=== PATIENT | male | born 1945 | race Caucasian/White ===

== ENCOUNTER 2018-08-26 07:48 | Inpatient (IN) ==
[2018-08-19 10:47] LABS: Appearance,Urine CLEAR; Bilirubin,Urine NEG (NEG); Color,Urine YELLOW; Glucose,Urine (UA) NEGATIVE (NEG); Leukocyte Esterase,Urine NEG /uL (NEG); Protein,Urine NEG (NEG); Specific Gravity,Urine 1.023 (1.000-1.035); Urine Blood NEG mg/dL (<0.03); Urobilinogen,Urine NEG (NEG)
[2018-08-19 12:13] LABS: Basophils # (Auto) 0 K/mcL (0.0-0.3); Basophils % (Auto) 0.7 % (0.0-2.0); Blood Urea Nitrogen 23 mg/dl (8-23); Eosinophils # (Auto) 0.2 K/mcL (0.0-0.7); Eosinophils % (Auto) 3.4 % (0.0-7.0); Granulocytes % (Auto) 57.8 % (38.0-78.0); Lymphocytes # (Auto) 1.3 K/mcL (1.5-4.8); Lymphocytes % (Auto) 27.2 % (15.5-49.0); Mean Cell Volume 94.9 fL (80.0-100.0); Mean Corpuscular HGB Conc 33.1 g/dL (31.0-36.0); Mean Corpuscular Hemoglobin 31.4 pg (26.0-34.0); Monocytes # (Auto) 0.5 K/mcL (0.1-0.9); Monocytes % (Auto) 10.9 % (1.0-12.0); Platelet Count 134 K/mcL (140-440); RBC 4.99 M/mcL (4.50-5.90)
[~2018-08-26 07:48] MED LIST: ACETAMINOPHEN 500 MG TABLET PO SCH; CELECOXIB 200 MG CAPSULE PO SCH; PREGABALIN 75 MG CAPSULE PO SCH; ceFAZolin 1 GM VIAL IV SCH; oxyCODONE 10 MG TAB.ER.12H PO SCH
[2018-08-26] MEDS ORDERED: TRANEXAMIC ACID 1,000 MG/10 ML VIAL IV ONE ×2 (11:00→12:09)
[2018-08-26] MEDS ORDERED: PROPOFOL 200 MG/20 ML VIAL IV ONE (11:00)
[2018-08-26] MEDS ORDERED: PHENYLEPHRINE 10 MG/ML VIAL IV ONE (11:00)
[2018-08-26] MEDS ORDERED: LIDOCAINE HCL/PF 100 MG/5 ML SYRINGE IV ONE (11:00)
[2018-08-26] MEDS ORDERED: ONDANSETRON 4 MG/2 ML VIAL IV ONE (11:00)
[2018-08-26] MEDS ORDERED: ROPIVACAINE HCL/PF 30 ML VIAL IJ ONE (11:00)
[2018-08-26] MEDS ORDERED: GLYCOPYRROLATE 0.2 MG/ML VIAL IV ONE (11:00)
[2018-08-26] MEDS ORDERED: fentaNYL 100 MCG/2 ML VIAL IV ONE (11:00)
[2018-08-26] MEDS ORDERED: KETAMINE 100 MG/ML ML IV ONE (11:00)
[2018-08-26] MEDS ORDERED: MIDAZOLAM 2 MG/2 ML VIAL IV ONE (11:00)
[2018-08-26] MEDS ORDERED: IPRATROPIUM/ALBUTEROL 3 ML AMPUL.NEB NEB PRN ×2 (12:02→12:03)
[2018-08-26] MEDS ORDERED: NALOXONE HCL 0.4 MG/ML VIAL IV PRN (12:03)
[2018-08-26] MEDS ORDERED: FLUMAZENIL 0.1 MG/ML ML IV PRN (12:03)
[2018-08-26] MEDS ORDERED: diphenhydrAMINE 50 MG/ML VIAL IV PRN (12:03)
[2018-08-26] MEDS ORDERED: HYDROmorphone 2 MG/ML VIAL IV PRN ×2 (12:03→12:09)
[2018-08-26] MEDS ORDERED: ePHEDrine 50 MG/ML AMPUL IV PRN (12:03)
[2018-08-26] MEDS ORDERED: ATROPINE SULFATE 0.4 MG/ML VIAL IV PRN (12:03)
[2018-08-26] MEDS ORDERED: PROMETHAZINE 25 MG/ML VIAL IV PRN (12:03)
[2018-08-26] MEDS ORDERED: MEPERIDINE 25 MG/ML SYRINGE IV PRN (12:03)
[2018-08-26] MEDS ORDERED: METOPROLOL TARTRATE 5 MG/5 ML VIAL IV PRN (12:03)
[2018-08-26] MEDS ORDERED: ONDANSETRON 4 MG/2 ML VIAL IV PRN ×2 (12:03→12:09)
[2018-08-26] MEDS ORDERED: METHOCARBAMOL 1,000 MG/10 ML VIAL IV PRN (12:03)
[2018-08-26] MEDS ORDERED: MAGNESIUM HYDROXIDE 30 ML ORAL.SUSP PO PRN (12:09)
[2018-08-26] MEDS ORDERED: BENZOCAINE/MENTHOL 1 LOZENGE PO PRN (12:09)
[2018-08-26] MEDS ORDERED: POLYETHYLENE GLYCOL 3350 17 GM PACKET PO PRN (12:09)
[2018-08-26] MEDS ORDERED: FLEETS ADULT ENEMA PR PRN (12:09)
[2018-08-26] MEDS ORDERED: TEMAZEPAM 15 MG CAPSULE PO PRN (12:09)
[2018-08-26] MEDS ORDERED: KETOROLAC 15 MG/ML VIAL IV PRN (12:09)
[2018-08-26] MEDS ORDERED: BISACODYL 10 MG SUPP.RECT PR PRN (12:09)
--- NOTE | 2018-08-26 12:09 | Brief Operative Note ---
Date of procedure: 08/26/18 Pre-op diagnosis: left shoulder djd and tear bicep Post-op diagnosis: same Procedure: left reverse tsa and bicep tenodesis Grafts/Implants: Yes Anesthesia: GETA Complications: none Surgeon: Tre Szymanski [employer] Vice President: Ralf Vuong Estimated blood loss (cc): 120 Specimens Removed/Pathology: none sent Condition: stable Disposition: PACU
[2018-08-26] MEDS ORDERED: LORazepam 1 MG TABLET PO PRN (12:12)
[2018-08-26] MEDS ORDERED: LACTATED RINGERS 1,000 ML IV SCH (12:15)
--- NOTE | 2018-08-26 12:41 | Operative Note ---
DATE OF OPERATION: 08/26/2018 PREOPERATIVE DIAGNOSES: Left shoulder rotator cuff arthropathy, degenerative arthritis, and biceps tendinopathy. POSTOPERATIVE DIAGNOSES: Left shoulder rotator cuff arthropathy, degenerative arthritis, and biceps tendinopathy. PROCEDURE: Left reverse total shoulder. SURGEON: Tre Szymanski M.D. RIB STIFFENER AND HEEL DIPPER: Ralf Vuong PA-C. ANESTHESIA: General LMA anesthesia. ESTIMATED BLOOD LOSS: 120 mL. IMPLANTS: A size 9 cementless stem with a standard thickness poly, 36 mm concentric head with 2 mm of offset, and a Metaglene with four screws per nurse's notes. COMPLICATIONS: None. DESCRIPTION OF PROCEDURE: The patient was brought to the operating room and put to sleep with general LMA anesthesia. Once asleep, the patient had the left shoulder sterilely prepped and draped in the usual sterile fashion. Timeout was performed. We confirmed the operative site. Then we made a deltopectoral approach. Once done, we then exposed the subscap. The deltoid was retracted laterally with the cephalic vein with a Colvin retractor. We released the subscap and biceps tendon. The biceps tendon was attached to the pec major muscle with a FiberWire stitch and three [id number] stitches. Good repair achieved. We then proceeded with releasing the subscap, which was tagged. Exposing the joint, we released the capsule inferiorly and then made the cut at the anatomical neck region. We placed a protective plate on the head, and this seemed to fit nicely. We subluxed the head posteriorly and performed a 360 degree capsular release and release of the labrum. We placed a central pin and reamed up to the size of 36. The inferior 50% was bleeding bone, and we placed the Metaglene. The central screw was 32 mm in length, 6.5 in diameter. This locked into the plate and then the peripheral screws were 20, 20, and 32 mm which also locked to the plate. A 36 mm concentric head with 2 mm of offset was placed. Once done, we then prepared the humerus. This was broached up to the size of 9. We placed a small amount of cement distally after trialing and this fit very nicely, achieving full motion without complication. The patient tolerated this well without complication. RBH:eugene Job ID: [id number] Doc ID: [id number] Tre Szymanski MD
[2018-08-26] MEDS: fentaNYL 100 MCG/2 ML VIAL IV PRN ×2 (12:43→13:05)
[2018-08-26] MEDS ORDERED: GENTAMICIN SULFATE 800 MG/20 ML VIAL IR ONE (13:08)
--- NOTE | 2018-08-26 13:23 | XRay Report ---
CLINICAL INFORMATION: Post-Op Total Shoulder COMPARISON: Preoperative shoulder films 01/23/2017 FINDINGS: Left shoulder prostheses is anatomically aligned. Malunified old mid clavicular fracture noted - no other osseous abnormality.. Soft tissues are normal IMPRESSION: Negative Interpreted and Authenticated by: Miguel Salgado 08/26/18
[2018-08-26] MEDS: 0.45 % SODIUM CHLORIDE 1,000 ML IV SCH (13:37)
[2018-08-26] MEDS: 0.9 % SODIUM CHLORIDE 10 ML SYRINGE IV SCH ×2 (16:02→20:08)
--- NOTE | 2018-08-26 16:28 | Discharge Summary ---
Ortho Discharge - TSA - Patient Instructions Diet: Regular Diet Activity: activity as tolerated, weight bearing as tolerated Total Shoulder Protocol: Leave immobilizer in place except for bathing and ROM. Abduction pillow. Continue to wear sling until seen by physician. Codman Pendulum : These exercises use momentum produced by your body to move your shoulder joint. Bend your knees and shift your weight to your front leg, then back, allowing your arm to swing in the same directions. Using the same technique, alternately shift your weight between your right and left legs, allowing your arm to swing from side to side. These exercises are also performed in counterclockwise and clockwise circular motions. Typically these exercises are performed several times per day, for a set number repetitions or minutes, such as 20 times in a row or 5 minutes at a time. Dressing Care: May shower in 2 days - Follow Up Plan Follow Up Appointments: Ralf Vuong PA-C [Physician Computer Systems Technology Instructor] - Disposition: Home, Self-Care Prognosis: Good Rehab Potential: Good I certify that the patient requires SNF services: No Overall status at discharge: patient is progressing back to baseline - Orders For Discharge Prescriptions: Docusate Sodium [Colace] 100 mg PO BID #60 cap oxyCODONE HCL [Roxicodone] 1 - 2 tab PO Q4HP PRN #75 tab PRN Reason: Pain Level 3-6
[2018-08-26] MEDS: ceFAZolin 1 GM VIAL IV SCH (17:32)
[2018-08-26] MEDS: DOCUSATE SODIUM 100 MG CAPSULE PO SCH (20:07)
[2018-08-26] MEDS: METOPROLOL TARTRATE 25 MG TABLET PO SCH (20:07)
[2018-08-26] MEDS: oxyCODONE HCL 5 MG TABLET PO PRN (20:37)
[2018-08-26] MEDS ORDERED: Eszopiclone [Lunesta] 2 MG PO SCH (21:00)
[2018-08-26] MEDS ORDERED: SIMVASTATIN 40 MG TABLET PO SCH (21:00)
[2018-08-26] MEDS ORDERED: SENNOSIDES 1 TABLET PO SCH (21:00)
[2018-08-27] MEDS: oxyCODONE HCL 5 MG TABLET PO PRN ×3 (00:16→08:57)
[2018-08-27] MEDS: ACETAMINOPHEN 325 MG TABLET PO PRN ×2 (00:17→08:57)
[2018-08-27] MEDS: 0.45 % SODIUM CHLORIDE 1,000 ML IV SCH ×2 (01:38→08:58)
[2018-08-27] MEDS: ceFAZolin 1 GM VIAL IV SCH (01:38)
[2018-08-27] MEDS: 0.9 % SODIUM CHLORIDE 10 ML SYRINGE IV SCH (04:20)
--- NOTE | 2018-08-27 07:20 | Orthopedic Progress Note ---
Subjective Patient information: Note initiated : 08/27/18 at 7:19 am Service Date, if different from initiated Date: [] Patient: Felix Posadas 73 y/o M admitted on 08/26/18 for Left Reverse Total Shoulder Arthroplasty with. Chief Complaint: [Pt is stable this morning on post operative day 1 without any significant concerns or complaints. Patients vital signs have remained stable. Patients dressing is dry and is grossly intact from a neurovascular and motor standpoint. Patients 10 point ROS is otherwise negative. ] Objective Vital signs: Vital Signs Temp Pulse Pulse Resp BP BP Pulse Ox 08/27/18 07:08 98.5 F 20 118/62 94 08/27/18 02:55 97.7 F 68 20 115/69 94 08/27/18 00:00 98.3 F 66 20 114/65 93 08/26/18 20:57 63 20 91 08/26/18 20:00 95 08/26/18 19:46 97.9 F 63 22 119/69 95 08/26/18 16:07 68 126/76 97 08/26/18 15:51 70 97/60 96 08/26/18 15:36 70 123/65 97 08/26/18 15:21 70 128/77 97 08/26/18 15:06 71 134/76 96 08/26/18 14:51 62 137/78 98 08/26/18 14:36 62 139/80 97 08/26/18 14:21 61 138/77 97 08/26/18 14:06 63 148/81 95 08/26/18 13:27 97.0 F 70 17 168/89 97 08/26/18 13:17 69 15 164/75 97 08/26/18 13:02 69 18 160/78 97 08/26/18 12:47 70 14 151/77 97 08/26/18 12:42 70 17 123/90 96 08/26/18 12:37 71 15 107/62 97 08/26/18 12:32 97.2 F 71 9 L 108/69 99 08/26/18 08:00 96.4 F L 61 16 126/77 97 Intake and Output 08/26/18 08/27/18 08/27/18 21:59 05:59 13:59 Intake Total 840 / 840 1675 / 1675 518 / 518 Output Total 225 / 225 1250 / 1250 Balance 615 / 615 425 / 425 518 / 518 Intake: IV 1000 / 1000 518 / 518 Sodium Chloride 0.45% 1,000 ml 1000 / 1000 518 / 518 @ 100 mls/hr IV .Q10H [facility] Rx#: [id number] Oral 840 / 840 675 / 675 Output: Void Amount 225 / 225 1250 / 1250 Other: Meal Dinner Percent of Meal Consumed 25% Feeding Ability Independent Urine Appearance Clear Clear Urine Color Light Lilia Straw Urine Odor Strong Normal Weight 197 lb 8 oz Intake & Output: Intake & Output 08/26/18 08/27/18 08/27/18 21:59 05:59 13:59 Intake Total 840 / 840 1675 / 1675 518 / 518 Output Total 225 / 225 1250 / 1250 Balance 615 / 615 425 / 425 518 / 518 Weight 197 lb 8 oz Intake: IV 1000 / 1000 518 / 518 Sodium Chloride 0.45% 1,000 ml 1000 / 1000 518 / 518 @ 100 mls/hr IV .Q10H [facility] Rx#: [id number] Oral 840 / 840 675 / 675 Output: Void Amount 225 / 225 1250 / 1250 Other: Meal Dinner Percent of Meal Consumed 25% Feeding Ability Independent Urine Appearance Clear Clear Urine Color Light Lilia Straw Urine Odor Strong Normal Incision: Yes healing Incision clean and dry: Yes Dressing: Yes clean Weight bearing status: full Neurological exam IM: Yes motor sensory intact, Yes neurovascular intact Extremities exam IM: Yes Foot pink and warm, Yes neurovascular intact - Labs CBC & BMP: 08/19/18 09:31 08/19/18 09:31 Labs: Orthopedic Labs 08/19/18 09:31 PT 13.2 INR 1.0 APTT 41 H 08/19/18 09:31 Hgb 15.6 Hct 47.3 Assessment and Plan (1) History of reverse total replacement of left shoulder joint The patient has been educated regarding dressing care, Physical Therapy recommendations, home exercises, restrictions, and follow up appointments. The patient has had all necessary DME prescribed. The patient has remained relatively stable during their hospital course. Leave Dermabond patch intact until followup Status: Acute
[2018-08-27] MEDS: METOPROLOL TARTRATE 25 MG TABLET PO SCH (08:58)
[2018-08-27] MEDS: DOCUSATE SODIUM 100 MG CAPSULE PO SCH (08:58)
[2018-08-27] MEDS ORDERED: FOLIC ACID 1 MG TABLET PO SCH (09:00)
[2018-08-27] MEDS ORDERED: SERTRALINE 50 MG TABLET PO SCH (09:00)
[2018-08-27] MEDS ORDERED: MAGNESIUM OXIDE 400 MG TABLET PO SCH (09:00)
[2018-08-27] MEDS ORDERED: CLOPIDOGREL 75 MG TABLET PO SCH (09:00)
[2018-08-27] MEDS ORDERED: ASPIRIN 81 MG TAB.CHEW PO SCH (09:00)
== END 2018-08-27 11:30 | disposition home or self-care (01) | DRG 483 ==
LOC: MEDSUR 07:48
PROVIDERS: ADMIT Orthopaedic Surgery; ATTEND Orthopaedic Surgery
CPT/HCPCS: 97161